=== PATIENT | male | born 1990 | race Caucasian/White ===

== ENCOUNTER 2022-03-22 11:30 | Emergency (ER) | payer SELFPAY ==
[2022-03-22 12:31] VITALS: BP 125/64; PULSE 96
[2022-03-22] MEDS ORDERED: Ketorolac 60 MG/2 ML SDV IM ONE (12:35)
[2022-03-22 13:19] LABS: ESTIMATED GFR 83 mL/min (>60)
[2022-03-22] MEDS ORDERED: cefTRIAXone 1 GM, Lidocaine 1% 2.1 ML IM ONE ×2 (13:31)
[2022-03-22] MEDS ORDERED: Doxycycline Susp 25 MG/5 ML 60 ML Bottle PO ONE (13:33)
[2022-03-22] MEDS ORDERED: Doxycycline Monohydrate 100 MG Cap PO ONE (13:34)
[2022-03-22] MEDS ORDERED: cefTRIAXone 1 GM Vial ONE (14:00)
== END 2022-03-22 14:00 | disposition swing bed (61) ==
LOC: JD.ED 11:30
DX: L03.115 Cellulitis of right lower limb (principal); Z79.899 Other long term (current) drug therapy
CPT/HCPCS: 36415; 80053; 85025; 85379; 86140; 96372; 99283; A9270; J0696; J1885

== ENCOUNTER 2022-03-28 10:00 | Emergency (ER) | payer OTHER ==
[2022-03-28 10:25] VITALS: BP 140/89; PULSE 83
[2022-03-28] MEDS ORDERED: Sulfamethoxazole/Trimethoprim 800-160 MG Tab PO ONE (12:49)
== END 2022-03-28 12:58 | disposition home or self-care (01) ==
LOC: JD.ED 10:00
DX: L03.115 Cellulitis of right lower limb (principal)
CPT/HCPCS: 36415; 80053; 85025; 85379; 86140; 93971; 99284; A9270